=== PATIENT | female | born 2005 | race African-American/Black ===

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

== ENCOUNTER 2024-11-12 15:15 | Emergency (ER) | payer MEDICAID ==
[~2024-11-12] VITALS: Ht 154.9 cm; Wt 59.4 kg
[~2024-11-12 15:15] MED LIST: POTA-205 MT
[2024-11-12 15:25] VITALS: O2SAT 98
[2024-11-12 15:26] VITALS: BP 109/52; PULSE 99; RESP 16; TEMP 37; O2SAT 100
[2024-11-12] MEDS ORDERED: AMOX250S70 MT (15:51)
[2024-11-12] MEDS ORDERED: TOPUD MT (15:51)
== END 2024-11-12 16:13 | disposition home or self-care (01) ==
LOC: ER 15:15
DX: O26.891 Other specified pregnancy related conditions, first trimester (principal); K02.9 Dental caries, unspecified; F12.90 Cannabis use, unspecified, uncomplicated; Z79.899 Other long term (current) drug therapy; Z3A.13 13 weeks gestation of pregnancy
CPT/HCPCS: 99283

== ENCOUNTER 2024-11-14 15:23 | Emergency (ER) | payer MEDICAID, OTHER ==
[~2024-11-14] VITALS: Ht 160 cm; Wt 60.0 kg
[~2024-11-14 15:23] MED LIST changes: +AMOX250S70 MT; +TOPUD MT
[2024-11-14 15:37] VITALS: O2SAT 99
[2024-11-14 16:38] LABS: BASOPHILS % 0.2 % (0.0-2.0); EOSINOPHILS % 0.3 % (0.0-5.0); HEMATOCRIT. 25.7 % (36.0-48.0); LYMPHOCYTES % 19.9 % (20.0-50.0); MEAN CORPUSCULAR VOLUME 67.7 fL (81.0-99.0); MEAN PLATELET VOLUME 7.4 fl (7.4-10.4); MONOCYTES % 6.8 % (2.0-8.0); NEUTROPHILS % 72.8 % (40.0-76.0); PLATELET 343 x1000/uL (130-400); RED CELL DISTRIBUTION WIDTH 20.2 % (11.6-14.6); WHITE BLOOD COUNT 6.3 x1000/uL (4.5-11.0)
[2024-11-14 16:41] LABS: ADD RBC MORPHOLOGY YES; DIFFERENTIAL COMMENT 1
[2024-11-14 16:49] LABS: HCG SCREEN POSITIVE
[2024-11-14 16:52] LABS: CARBON DIOXIDE 23 mEq/L (21-32); CHLORIDE 102 mEq/L (98-107); SODIUM 134 mEq/L (136-145)
[2024-11-14 16:53] LABS: CALCIUM 9.3 mg/dL (8.7-10.4)
[2024-11-14 16:58] LABS: CREATININE 0.5 mg/dL (0.6-1.0); GLUCOSE 80 mg/dL (70-105); UREA NITROGEN BLOOD 6 mg/dL (9-23)
[2024-11-14 17:08] LABS: CLARITY URINE CLEAR (CLEAR); COLOR URINE YELLOW (YELLOW); GLUCOSE URINE NEGATIVE (NEGATIVE); KETONES URINE NEGATIVE (NEGATIVE); LEUKOCYTE ESTERASE URINE TRACE (NEGATIVE); NITRITE URINE NEGATIVE (NEGATIVE); OCCULT BLOOD URINE 2+ (NEGATIVE); PH URINE 7.5 (4.5-8.0); PROTEIN URINE NEGATIVE (NEGATIVE); UROBILINOGEN URINE 0.2 E.U./dL (0.2-1.0)
[2024-11-14 17:09] LABS: ANISOCYTOSIS 1+; HYPOCHROMASIA 2+; MICROCYTOSIS 3+; PLATELET ESTIMATE NORMAL
[2024-11-14 17:21] LABS: B-HCG QUANTITATIVE 45228 mIU/mL (<6)
[2024-11-14 17:29] LABS: WBC URINE 0-2 /hpf (0-2)
[2024-11-14 17:30] LABS: BACTERIA URINE NONE SEEN; RBC URINE 0-2 /hpf (0-2); SQUAMOUS EPITHELIAL CELL URINE FEW /lpf (RARE/1+)
[2024-11-14 17:56] VITALS: BP 121/68; PULSE 88; RESP 16; TEMP 37; O2SAT 99
== END 2024-11-14 17:54 | disposition home or self-care (01) ==
LOC: ER 15:23
DX: O20.9 Hemorrhage in early pregnancy, unspecified (principal); Z3A.14 14 weeks gestation of pregnancy; Z79.899 Other long term (current) drug therapy
CPT/HCPCS: 36415; 76801; 76805; 80048; 81003; 81025; 84702; 84703; 85025; 86850; 86900; 99284